=== PATIENT | female | born 1980 | race Caucasian/White ===

== ENCOUNTER 2019-01-19 22:00 | Emergency (ER) | payer MEDICAID ==
[~2019-01-19] VITALS: Ht 165.1 cm; Wt 107.0 kg
[2019-01-19 22:07] VITALS: BP 138/89
--- NOTE | 2019-01-20 01:17 | NUR ---
PATIENT CALLED FIRST TIME. NO RESPONSE.
--- NOTE | 2019-01-20 01:35 | NUR ---
PATIENT CALLED SECOND TIME. NO RESPONSE.
--- NOTE | 2019-01-20 02:00 | NUR ---
PATIENT CALLED THIRD TIME. NO RESPONSE. LWBS
== END 2019-01-20 01:17 | disposition left against medical advice (07) ==
LOC: MED 22:00
DX: H92.01 Otalgia, right ear (principal); Z53.21 Procedure and treatment not carried out due to patient leaving prior to being seen by health care provider